=== PATIENT | female | born 1965 | race Caucasian/White ===

== ENCOUNTER → 2017-10-07 | Outpatient (CLI) | payer OTHER ==
[~2017-10-07] MED LIST: BP MED; CHOLESTEROL MED; NORCO 325 MG-7.1 TAB PO; VALIUM 5MG T5 MG/TAB PO
== END ==
LOC: MC.RAD 13:45
DX: Z12.31 Encounter for screening mammogram for malignant neoplasm of breast (principal)

== ENCOUNTER → 2018-02-13 | Outpatient (CLI) | payer OTHER | LOC: COL.RAD 13:40 | DX: M47.892 Other spondylosis, cervical region (principal); M50.221 Other cervical disc displacement at C4-C5 level; G95.29 Other cord compression; M48.02 Spinal stenosis, cervical region ==

== ENCOUNTER 2019-11-09 06:44 | Day surgery (SDC) | payer OTHER ==
[~2019-11-09] VITALS: Ht 157.5 cm; Wt 72.7 kg
[2019-11-09 07:14] VITALS: BP 145/95; PULSE 68; TEMP 98.3
[2019-11-09] MEDS ORDERED: INDERAL40 MG PO (07:32)
[2019-11-09] MEDS ORDERED: ZOCOR 20MG20 MG PO (07:33)
[2019-11-09] MEDS ORDERED: ZOLOFT 100MG100 MG PO (07:35)
[2019-11-09] MEDS ORDERED: PRIL40 PO (07:35)
[2019-11-09] MEDS ORDERED: PEPCID40 MG PO (07:37)
[2019-11-09] MEDS ORDERED: CHANTIX 1MG1 MG PO (07:38)
[2019-11-09] MEDS ORDERED: PRINIVIL40 MG PO (07:38)
[2019-11-09] MEDS ORDERED: FLEXERIL 1010 MG/TAB PO (07:39)
[2019-11-09] MEDS ORDERED: IMITREX100 MG PO (07:40)
[2019-11-09] MEDS ORDERED: RT ADVAIR 128 DISKUS IH (07:42)
[2019-11-09 08:30] VITALS: BP 130/85; PULSE 64
--- NOTE | 2019-11-09 08:30 | NUR ---
Patient brought back to [facility] via cart from [facility]. Report recived from Ayana VIGIL. Ambulated to bathroom and chair without difficulty. Placed on monitors, vital signs stable. Patient denies pain or nausea. Requesting juice and apple sauce. Warm blanket provided, call newell within reach. Will monitor.
[2019-11-09 08:45] VITALS: BP 130/77; PULSE 67
--- NOTE | 2019-11-09 08:45 | NUR ---
Patient tolerating food and drink without difficulty. Will continue to monitor.
[2019-11-09 09:00] VITALS: BP 146/77; PULSE 64
--- NOTE | 2019-11-09 09:00 | NUR ---
Dr. Tineo in room speaking with patient. Vital signs stable. States she would like to go home. IV removed. Pt to get dressed at this time.
--- NOTE | 2019-11-09 09:15 | NUR ---
Discharge instructions reviewed with patient all questions answered. waiting in parking lot to drive home. Brought down to [facility] via wheelchair. met at [facility]. To drive patient home.
== END 2019-11-09 09:15 | disposition home or self-care (01) ==
LOC: SDCO 06:44
DX: K29.30 Chronic superficial gastritis without bleeding (principal); K21.9 Gastro-esophageal reflux disease without esophagitis; K25.7 Chronic gastric ulcer without hemorrhage or perforation; Z79.899 Other long term (current) drug therapy; Z80.0 Family history of malignant neoplasm of digestive organs; I10 Essential (primary) hypertension; J44.9 Chronic obstructive pulmonary disease, unspecified; Z87.891 Personal history of nicotine dependence; Z88.8 Allergy status to other drugs, medicaments and biological substances; G43.909 Migraine, unspecified, not intractable, without status migrainosus; E78.5 Hyperlipidemia, unspecified
CPT/HCPCS: J2704; J7030

== ENCOUNTER → 2020-05-23 | Outpatient (CLI) | payer OTHER ==
[~2020-05-23] MED LIST changes: +CHANTIX 1MG1 MG PO; +FLEXERIL 1010 MG/TAB PO; +IMITREX100 MG PO; +INDERAL40 MG PO; +PEPCID40 MG PO; +PRIL40 PO; +PRINIVIL40 MG PO; +RT ADVAIR 128 DISKUS IH; +ZOCOR 20MG20 MG PO; +ZOLOFT 100MG100 MG PO
== END ==
LOC: COL.RAD 09:37
DX: K80.50 Calculus of bile duct without cholangitis or cholecystitis without obstruction (principal)
CPT/HCPCS: A9537; J2805